=== PATIENT | male | born 1960 | race Caucasian/White ===

== ENCOUNTER 2023-10-13 17:44 | Inpatient (IN) | payer OTHER ==
[2023-10-13 18:27] LABS: Hemoglobin 7.5 g/dL (14.0-18.0); Mean Corpuscular Hemoglobin 24.1 pg (27.0-31.0); Mean Corpuscular Volume 80.4 fL (78.0-98.0); Platelet Count 43 10x3/uL (130-400); RBC Distribution Width 20.1 % (11.5-14.5); Red Blood Cell (RBC) Count 3.11 mill/uL (4.70-6.10)
[2023-10-13] MEDS ORDERED: levETIRAcetam 500 MG (5 mL) VIAL ONE (18:29)
[2023-10-13] MEDS ORDERED: LORazepam 2 MG/ML SYR.(CARPUJECT) ONE (18:29)
[2023-10-13 18:49] LABS: ALT (SGPT) 25 U/L (8-55); AST (SGOT) 28 U/L (5-34); Albumin 3.5 g/dL (3.4-4.8); Alkaline Phosphatase 125 U/L (40-110); Anion Gap 10 mmol/L (10-20); BUN (Urea Nitrogen) 15 mg/dL (8.4-25.7); Bilirubin, Total 0.5 mg/dL (0.2-1.2); Calc. Creatinine Clearance 0 mL/min (70-130); Calcium 8.8 mg/dL (7.8-10.44); Carbon Dioxide 22 mmol/L (23-31); Chloride 112 mmol/L (98-107); Estimated GFR 100; Glucose 97 mg/dL (80-115); Lipase 34 U/L (8-78); Protein, Total 6.5 g/dL (5.8-8.1); Sodium 140 mmol/L (136-145)
[2023-10-13 18:55] LABS: Anisocytosis SLIGHT = 6-15 cells HPF (0-5); Band 6 % (5-11); Eosinophils 11 % (0-10); Hypochromia SLIGHT = 6-15 cells HPF (0-5); Large Platelets 8.9 % (0-5); Lymphocytes 28 % (21-51); Monocytes 6 % (0-10); Neutrophil 50 % (42-75); Nucleated RBC (Manual Ct) 1 % (0); Ovalocytes SLIGHT = 2-5 cells HPF (0-1); Platelet Adequacy Comment Platelets Decreased; Poikilocytosis SLIGHT = 6-15 cells HPF (0-5); Polychromasia SLIGHT = 2-3 cells HPF (0-2); Schistocytes SLIGHT = 2-5 cells HPF (0-1); Tear Drops SLIGHT = 2-5 cells HPF (0-1)
[2023-10-13 19:39] LABS: INR-International Normal Ratio 1.3; Prothrombin Time 16.4 sec (12.0-14.7)
[2023-10-13 19:41] LABS: PTT 31.8 sec (22.9-36.1)
[2023-10-13] MEDS ORDERED: Pantoprazole 80 MG, Admixture Fee 1 EACH in Sodium Chloride 0.9% 100 ML IVPB SCH (20:00)
[2023-10-13] MEDS ORDERED: Octreotide Acetate 1,250 MCG in Sodium Chloride 0.9% 250 ML 250 ML IVPB SCH (20:00)
[2023-10-13] MEDS ORDERED: Pantoprazole 40 MG VIAL ONE (20:56)
[2023-10-13] MEDS ORDERED: Octreotide Acetate 500 MCG/ML VIAL ONE (20:57)
[2023-10-13] MEDS ORDERED: fentaNYL 50 mcg/mL 1 mL Vial ONE (22:40)
[2023-10-13 23:03] LABS: SARS-CoV-2 E Target Negative; SARS-CoV-2 N2 Target Negative; SARS-CoV-2 NAA Rapid Test Not Detected (NotDetected); SARS-CoV-2 RdRP gene Negative
[2023-10-14 00:04] VITALS: BMI 28.0
[2023-10-14] MEDS ORDERED: Acetaminophen 325 MG TAB PO PRN (01:08)
[2023-10-14] MEDS ORDERED: Melatonin 3 MG TAB PO PRN (01:08)
[2023-10-14] MEDS ORDERED: traZODone HCl 50 MG TAB PO PRN (01:08)
[2023-10-14] MEDS ORDERED: Acetaminophen 650 MG Suppository PR PRN (01:14)
[2023-10-14] MEDS ORDERED: Octreotide Acetate 1,250 MCG in Sodium Chloride 0.9% 250 ML 250 ML IVPB SCH (01:15)
[2023-10-14 04:12] LABS: Hematocrit 23.4 % (42.0-52.0); Hemoglobin 6.9 g/dL (14.0-18.0); Mean Corpuscular HGB CONC 29.5 g/dL (32.0-36.0); Mean Corpuscular Hemoglobin 23.5 pg (27.0-31.0); Mean Corpuscular Volume 79.9 fL (78.0-98.0); Platelet Count 33 10x3/uL (130-400); RBC Distribution Width 20.2 % (11.5-14.5); Red Blood Cell (RBC) Count 2.93 mill/uL (4.70-6.10)
[2023-10-14] MEDS: Midodrine HCl 5 MG TAB PO SCH (04:15)
[2023-10-14] MEDS: Dextrose 5%-Lactated Ringers 1,000 ML IV SCH (04:16)
[2023-10-14] MEDS: Acetaminophen 325 MG TAB PO PRN (04:48)
[2023-10-14 04:50] LABS: Anisocytosis SLIGHT = 6-15 cells HPF (0-5); Hypochromia SLIGHT = 6-15 cells HPF (0-5); Large Platelets 18.2 % (0-5); Lymphocytes 55 % (21-51); Microcytosis SLIGHT = 6-15 cells HPF (0-5); Monocytes 9 % (0-10); Neutrophil 36 % (42-75); Platelet Adequacy Comment Platelets Decreased; Polychromasia SLIGHT = 2-3 cells HPF (0-2); Smudge Cells 45.5 %
[2023-10-14 05:29] LABS: ALT (SGPT) 20 U/L (8-55); AST (SGOT) 25 U/L (5-34); Albumin 3.1 g/dL (3.4-4.8); Alkaline Phosphatase 102 U/L (40-110); Anion Gap 10 mmol/L (10-20); BUN (Urea Nitrogen) 14 mg/dL (8.4-25.7); Bilirubin, Total 0.7 mg/dL (0.2-1.2); Calc. Creatinine Clearance 132 mL/min (70-130); Calcium 8.1 mg/dL (7.8-10.44); Carbon Dioxide 17 mmol/L (23-31); Chloride 115 mmol/L (98-107); Estimated GFR 101; Globulin 2.6 g/dL (2.4-3.5); Glucose 81 mg/dL (80-115); Protein, Total 5.7 g/dL (5.8-8.1); Sodium 138 mmol/L (136-145)
[2023-10-14] MEDS ORDERED: Pantoprazole 80 MG in Sodium Chloride 0.9% 100 ML IVPB SCH (06:30)
[2023-10-14] MEDS: levETIRAcetam 500 MG TAB PO SCH (08:45)
[2023-10-14] MEDS: Famotidine 20 MG TAB PO SCH (08:46)
[2023-10-14] MEDS: Famotidine/PF 20 mg/2ml Vial SLOW IVP SCH (08:47)
[2023-10-14] MEDS: Ferrous Sulfate 325 MG TAB PO SCH (08:47)
[2023-10-14] MEDS: Rifaximin 550 MG TAB PO SCH (08:48)
[2023-10-14] MEDS: Lactulose 20 GM (30 mL) UDCUP PO SCH (08:50)
[2023-10-14] MEDS ORDERED: Furosemide 40 MG (4 mL) VIAL IVP SCH (09:00)
[2023-10-14] MEDS ORDERED: Furosemide 40 MG TAB PO SCH (09:00)
[2023-10-14] MEDS ORDERED: Lidocaine 1% PF 5 ML VIAL ONE (14:57)
[2023-10-14] MEDS ORDERED: Sodium Bicarbonate 2.5 MEQ/5 ML SDV ONE (14:58)
[2023-10-14] MEDS ORDERED: Albumin 25% 0 ML ONE (16:00)
[2023-10-14] MEDS: Ondansetron PF 4 MG/2 ML Vial IVP PRN (18:24)
[2023-10-14 20:11] LABS: RBC Count-Automated (BF) 175 /cu.mm; WBC/Nucleated-Auto (BF) 263 /cu.mm
[2023-10-14 20:23] LABS: BF Color Yellow; Body Fluid Source Ascites Body Fluid; Clarity Hazy (Clear); Tube # EDTA
[2023-10-14 20:46] LABS: BF Segmented Neutrophils 2 %; Cell Count Non Hematic 57 %; Lymphocytes 41 %
[2023-10-14] MEDS: Terazosin HCl 1 MG CAP PO SCH (22:07)
[2023-10-14] MEDS: Tamsulosin HCl 0.4 MG CAP PO SCH (22:08)
[2023-10-15 04:36] LABS: ALT (SGPT) 17 U/L (8-55); AST (SGOT) 22 U/L (5-34); Albumin 2.9 g/dL (3.4-4.8); Alkaline Phosphatase 99 U/L (40-110); Anion Gap 10 mmol/L (10-20); BUN (Urea Nitrogen) 12 mg/dL (8.4-25.7); Bilirubin, Total 0.8 mg/dL (0.2-1.2); Calc. Creatinine Clearance 122 mL/min (70-130); Calcium 7.9 mg/dL (7.8-10.44); Carbon Dioxide 21 mmol/L (23-31); Chloride 111 mmol/L (98-107); Estimated GFR 98; Globulin 2.7 g/dL (2.4-3.5); Glucose 102 mg/dL (80-115); Iron 98 ug/dL (65-175); Iron Binding Capacity, Total 310 mcg/dL (261-462); Potassium 3.7 mmol/L (3.5-5.1); Protein, Total 5.6 g/dL (5.8-8.1); Sodium 138 mmol/L (136-145)
[2023-10-15 05:07] LABS: Hematocrit 23.9 % (42.0-52.0); Hemoglobin 7.1 g/dL (14.0-18.0); Mean Corpuscular HGB CONC 29.7 g/dL (32.0-36.0); Mean Corpuscular Hemoglobin 23.7 pg (27.0-31.0); Mean Corpuscular Volume 79.7 fL (78.0-98.0); Platelet Count 35 10x3/uL (130-400); RBC Distribution Width 19.4 % (11.5-14.5)
[2023-10-15 06:13] LABS: Anisocytosis SLIGHT = 6-15 cells HPF (0-5); Band 3 % (5-11); Elliptocytes SLIGHT = 2-5 cells HPF (0-1); Eosinophils 6 % (0-10); Large Platelets 17.6 % (0-5); Lymphocytes 35 % (21-51); Macrocytosis SLIGHT = 6-15 cells HPF (0-5); Monocytes 9 % (0-10); Neutrophil 47 % (42-75); Platelet Adequacy Comment Platelets Decreased; Polychromasia SLIGHT = 2-3 cells HPF (0-2); Smudge Cells 11.8 %
[2023-10-15] MEDS: Ondansetron ODT 4 MG TAB PO PRN ×2 (08:39→13:50)
[2023-10-15] MEDS: Spironolactone 100 MG TAB PO SCH (08:40)
[2023-10-15] MEDS ORDERED: Ondansetron PF 4 MG/2 ML Vial IVP PRN (13:41)
[2023-10-15] MEDS: traMADol HCl 50 MG TAB PO PRN (17:56)
[2023-10-15] MEDS: Pantoprazole 40 MG VIAL IVP SCH (21:16)
[2023-10-16 04:53] LABS: Hematocrit 23.6 % (42.0-52.0); Hemoglobin 7.1 g/dL (14.0-18.0); Mean Corpuscular HGB CONC 30.1 g/dL (32.0-36.0); Mean Corpuscular Hemoglobin 24.7 pg (27.0-31.0); Mean Corpuscular Volume 81.9 fL (78.0-98.0); Platelet Count 34 10x3/uL (130-400); RBC Distribution Width 19.9 % (11.5-14.5); Red Blood Cell (RBC) Count 2.88 mill/uL (4.70-6.10)
[2023-10-16 05:28] LABS: Anisocytosis SLIGHT = 6-15 cells HPF (0-5); Eosinophils 4 % (0-10); Hypochromia SLIGHT = 6-15 cells HPF (0-5); Lymphocytes 28 % (21-51); Microcytosis SLIGHT = 6-15 cells HPF (0-5); Monocytes 8 % (0-10); Neutrophil 60 % (42-75); Platelet Adequacy Comment Platelets Decreased; Polychromasia SLIGHT = 2-3 cells HPF (0-2)
[2023-10-16 05:36] LABS: ALT (SGPT) 15 U/L (8-55); AST (SGOT) 20 U/L (5-34); Albumin 2.9 g/dL (3.4-4.8); Alkaline Phosphatase 97 U/L (40-110); Anion Gap 11 mmol/L (10-20); BUN (Urea Nitrogen) 12 mg/dL (8.4-25.7); Bilirubin, Total 0.4 mg/dL (0.2-1.2); Calc. Creatinine Clearance 104 mL/min (70-130); Calcium 7.7 mg/dL (7.8-10.44); Carbon Dioxide 21 mmol/L (23-31); Chloride 111 mmol/L (98-107); Estimated GFR 89; Globulin 2.6 g/dL (2.4-3.5); Glucose 86 mg/dL (80-115); Potassium 3.6 mmol/L (3.5-5.1); Protein, Total 5.5 g/dL (5.8-8.1); Sodium 139 mmol/L (136-145)
[2023-10-17 06:32] LABS: Hematocrit 25.5 % (42.0-52.0); Hemoglobin 7.6 g/dL (14.0-18.0); Mean Corpuscular HGB CONC 29.8 g/dL (32.0-36.0); Mean Corpuscular Hemoglobin 23.9 pg (27.0-31.0); Mean Corpuscular Volume 80.2 fL (78.0-98.0); Platelet Count 38 10x3/uL (130-400); RBC Distribution Width 20.3 % (11.5-14.5); Red Blood Cell (RBC) Count 3.18 mill/uL (4.70-6.10)
[2023-10-17 06:40] LABS: ALT (SGPT) 19 U/L (8-55); AST (SGOT) 23 U/L (5-34); Albumin 3.1 g/dL (3.4-4.8); Alkaline Phosphatase 102 U/L (40-110); Anion Gap 10 mmol/L (10-20); BUN (Urea Nitrogen) 12 mg/dL (8.4-25.7); Calc. Creatinine Clearance 104 mL/min (70-130); Carbon Dioxide 20 mmol/L (23-31); Chloride 107 mmol/L (98-107); Estimated GFR 89; Globulin 2.9 g/dL (2.4-3.5); Glucose 91 mg/dL (80-115); Potassium 4.1 mmol/L (3.5-5.1); Sodium 133 mmol/L (136-145)
[2023-10-17 07:31] LABS: Anisocytosis SLIGHT = 6-15 cells HPF (0-5); Band 9 % (5-11); Giant Platelets 1.2 % (0-5); Hypochromia SLIGHT = 6-15 cells HPF (0-5); Large Platelets 6.2 % (0-5); Lymphocytes 14 % (21-51); Monocytes 12 % (0-10); Neutrophil 62 % (42-75); Platelet Adequacy Comment Significant Decrease; Polychromasia SLIGHT = 2-3 cells HPF (0-2); Schistocytes SLIGHT = 2-5 cells HPF (0-1)
[2023-10-17] MEDS: Furosemide 20 MG TAB PO SCH (10:20)
[2023-10-17] MEDS: Spironolactone 100 MG TAB PO SCH (10:21)
[2023-10-17 20:09] VITALS: BP 99/58; TEMP 99.2
== END 2023-10-17 21:28 | DRG 433 ==
LOC: ERS 17:44 → EEVIPCON 17:44 → 2SE 22:27
PROVIDERS: ADMIT Student in an Organized Health Care Education/Training Program; ATTEND Internal Medicine
PROC: 0W9G3ZZ Drainage of Peritoneal Cavity, Percutaneous Approach (ICD-10-PCS; principal; 2023-10-14)
PROC: 30243R1 Transfusion of Nonautologous Platelets into Central Vein, Percutaneous Approach (ICD-10-PCS; 2023-10-14)
DX: K74.60 Unspecified cirrhosis of liver (principal); D61.818 Other pancytopenia; R18.8 Other ascites; N40.0 Benign prostatic hyperplasia without lower urinary tract symptoms; G40.909 Epilepsy, unspecified, not intractable, without status epilepticus; R51.9 Headache, unspecified; D69.6 Thrombocytopenia, unspecified; M54.30 Sciatica, unspecified side; D53.9 Nutritional anemia, unspecified; Z88.0 Allergy status to penicillin; Z88.2 Allergy status to sulfonamides; Z79.891 Long term (current) use of opiate analgesic; Z79.899 Other long term (current) drug therapy; Z87.11 Personal history of peptic ulcer disease
CPT/HCPCS: 36415; 36430; 49083; 80053; 82042; 82728; 83540; 83550; 83690; 84157; 85025; 85060; 85610; 85730; 86850; 86900; 86901; 89051; 93005; 96374; 96375; C9113; J1953; J2060; J2354; J2405; J3010; J3490; J7050; P9016; P9035; P9047; Q0162; S0028; U0002